=== PATIENT | male | born 1960 | race Caucasian/White ===

== ENCOUNTER 2022-01-04 15:11 | Emergency (ER) | payer BC ==
[2022-01-04] MEDS ORDERED: Aspirin 81 MG Tab.Chew PO ONE (15:17)
[2022-01-04] MEDS ORDERED: Tenecteplase 50 MG Kit IV ONE (15:21)
[2022-01-04] MEDS ORDERED: Heparin Sodium 5,000 Units/ML Vial IVPUSH ONE (15:23)
[2022-01-04] MEDS ORDERED: Clopidogrel 75 MG Tab PO ONE (15:24)
[2022-01-04] MEDS ORDERED: Heparin Sodium/0.45% NaCl 500 ML IV SCH (15:30)
[2022-01-04 15:56] LABS: POTASSIUM,K 3.5 mmol/L (3.5-5.1)
== END 2022-01-04 15:50 ==
LOC: MW.ED 15:11
DX: I21.3 ST elevation (STEMI) myocardial infarction of unspecified site (principal); F17.210 Nicotine dependence, cigarettes, uncomplicated; Z20.822 Contact with and (suspected) exposure to COVID-19
CPT/HCPCS: 36415; 71045; 80053; 83735; 84484; 85025; 85610; 85730; 87635; 93005; 96374; 96375; 96376; 99285; A9270; J1644; J3101; U0002